=== PATIENT | female | born 1980 | race Hispanic/Latino ===

== ENCOUNTER 2018-04-19 07:49 | Day surgery (SDC) | payer OTHER ==
[2018-04-19] MEDS ORDERED: LOPRESSOR IV ONE (09:00)
[2018-04-19] MEDS ORDERED: NITROSTAT SL ONE (09:00)
[2018-04-19 09:21] LABS: BUN/Creatinine Ratio 21; Blood Urea Nitrogen 17 mg/dL (7-17); Calcium 8.9 mg/dL (8.4-10.2); Hemolysis Index 3
[2018-04-19 10:27] VITALS: BP 112/69
--- NOTE | 2018-04-26 08:12 | Cat Scan Report ---
LIMITED CT OF THE CHEST PER CT CORONARY ANGIOGRAPHY PROTOCOL: Limited CT of the chest per CT coronary angiography protocol is submitted. The cardiac portion of the exam has been previously interpreted by the [facility]. History: Abnormal cardiac tests. The included portions of the lungs appear clear without evidence for nodule, mass or infiltrate. The included pleural spaces are clear. No mediastinal or hilar adenopathy is evident. Included upper abdomen and solid abdominal organs are grossly within normal limits. IMPRESSION: Unremarkable limited CT of the chest as noted.
--- NOTE | 2018-04-26 20:13 | Procedure Note ---
[address] INDICATION: Chest pain. REFERRING PHYSICIAN: Neymar Rodrigues MD DESCRIPTION OF PROCEDURE: The patient received 0.4 of nitroglycerin sublingual for coronary vasodilation prior to scanning. Using a 64-slice MDCT, low dose noncontrast calcium scoring CT was performed with prospective gating followed by contrast enhanced CTA of 0.6 mm thickness with retrospective gating and 100 mL Isovue 370 IV. The scan was performed from the verónica through the base of the heart. Data was reconstructed using multiple cardiac phases. FINDINGS: The overall quality of this CAT scan is adequate, limited by the following artifact: 1. Motion artifact caused by cardiac motion secondary to poor heart rate control. 2. The total calcium score is zero indicating the absence of calcified atherosclerotic plaque and a very low cardiovascular disease risk. 3. Right dominant circulation. 4. The left main originates from the left coronary cusp. 5. The left main has no evidence of obstructive coronary artery disease. 6. The LAD has no evidence of obstructive coronary artery disease. 7. The first diagonal artery has no evidence of obstructive coronary artery disease. 8. The circumflex artery has no evidence of obstructive coronary artery disease. 9. The right coronary artery originates from the right coronary cusp. 10. The right coronary artery has no evidence of obstructive coronary artery disease. 11. The right coronary artery is a dominant vessel. 12. The aorta is normal in caliber. 13. The aortic valve is trileaflet. 14. The pulmonary artery is normal in caliber. 15. The pulmonary veins are normal, visualized entering the left atrium. 16. The atrial appendage has no evidence of filling defect. 17. The left ventricle is normal in size with normal systolic function and the left ventricular ejection fraction measured at 60%. 18. The pericardium exhibits no evidence of pericardial effusion. 19. Radiology overread of extracardiac structures. FINDINGS: No abnormalities detected. IMPRESSION: 1. Adequate quality scan limited by motion artifact caused by cardiac motion secondary to poor heart rate control. 2. Zero calcium score indicating the absence of calcified atherosclerotic plaque and a very low cardiovascular disease risk. 3. No evidence of obstructive coronary artery disease within this right dominant circulation. 4. Normal left ventricular size and systolic function. 5. Normal visualized segments of the aorta and the pulmonary artery. JOB# [id number] CULLEN/BURKE
== END 2018-04-19 10:36 | disposition home or self-care (01) ==
LOC: CATHLABREC 07:49 → CT 07:49 → EDSTATUS 09:15 → CATHLABREC 10:36
PROVIDERS: ATTEND Internal Medicine
DX: R07.89 Other chest pain (principal); I10 Essential (primary) hypertension; Z79.899 Other long term (current) drug therapy; Z90.710 Acquired absence of both cervix and uterus; Z98.890 Other specified postprocedural states
CPT/HCPCS: 36415; 75574; 80048; Q9967